=== PATIENT | male | born 1955 | race Caucasian/White ===

== ENCOUNTER 2020-02-02 08:30 | Observation (INO) ==
[2020-02-02] MEDS ORDERED: 0.9 % Sodium Chloride 1,000 ML ONE ×2 (09:10→10:09)
[2020-02-02] MEDS ORDERED: *HR* Heparin 10,000 UNIT/10 ML VIAL ONE (10:09)
[2020-02-02] MEDS ORDERED: ISOVUE-370 200 ML INFUS..BTL ONE (10:09)
[2020-02-02] MEDS ORDERED: Heparin 1,000 UNITS/500 mL 500 ML ONE (10:09)
[2020-02-02] MEDS ORDERED: Nitroglycerin 1,000 MCG/10 ML VIAL IV ONE (10:10)
[2020-02-02] MEDS ORDERED: *HR* Midazolam HCl 2 MG/2 ML VIAL ONE (10:23)
[2020-02-02] MEDS ORDERED: *HR* FentaNYL (PF) 100 MCG/2 ML VIAL ONE (10:23)
[2020-02-02] MEDS: Sucralfate 1 GM TABLET PO SCH ×3 (14:07→21:33)
[2020-02-02] MEDS: *HR* OxyCODONE Immed Rel 5 MG TABLET PO SCH ×2 (14:07→16:49)
[2020-02-02] MEDS: 0.9 % Sodium Chloride 1,000 ML IVC SCH ×2 (14:11→23:00)
[2020-02-02] MEDS: Morphine Sulfate ER (12 HR) 15 MG TABLET.ER PO SCH ×2 (17:01→21:33)
[2020-02-03] MEDS: *HR* OxyCODONE Immed Rel 5 MG TABLET PO SCH ×5 (01:17→23:50)
[2020-02-03] MEDS: Aspirin Enteric Coated 81 MG Tablet PO SCH (08:40)
[2020-02-03] MEDS: Morphine Sulfate ER (12 HR) 15 MG TABLET.ER PO SCH ×3 (08:40→20:51)
[2020-02-03] MEDS: Sucralfate 1 GM TABLET PO SCH ×4 (08:40→20:50)
[2020-02-03] MEDS: Cholecalciferol (D-3) 1,000 UNIT (25MCG) TABLET PO SCH (08:41)
[2020-02-03] MEDS: BuPROPion XL (24 HR) 150 MG TABLET PO SCH (08:41)
[2020-02-03] MEDS: amLODIPine 5 MG TABLET PO SCH (08:41)
[2020-02-03] MEDS: Metoprolol XL (24 HR) Succ 25 MG TAB.ER.24H PO SCH (08:41)
[2020-02-03] MEDS: Nitroglycerin 0.4 MG TAB.SUBL SL SCH (09:45)
[2020-02-03 09:57] LABS: Basophils # 0.1 K/mcL (0.0-0.2); Basophils % 0.9 %; Eosinophils # 0.2 K/mcL (0.0-0.6); Eosinophils % 2.3 %; Hematocrit 32.6 % (37.5-50.1); Hemoglobin 10.4 g/dL (12.9-16.9); Immature Granulocytes % 0.4 % (0-4); Lymphocytes # 2.4 K/mcL (0.6-4.6); Lymphocytes % 24.2 %; Mean Corpuscular HGB Conc 31.9 g/dL (31.6-35.5); Mean Corpuscular Hemoglobin 30.9 pg (28.0-33.3); Mean Corpuscular Volume 96.7 fL (83.0-100.0); Mean Platelet Volume 9.3 fL (9.4-12.4); Monocytes # 1.2 K/mcL (0.0-1.3); Monocytes % 11.8 %; Neutrophils # 6.1 K/mcL (1.6-8.9); Platelet Count 408 K/mcL (140-400); Red Blood Count 3.37 M/mcL (4.19-5.50); Red Cell Distribution Width 13.4 % (11.5-14.5); Segmented Neutrophils % 60.4 %; White Blood Count 10.1 K/mcL (4.3-11.1)
[2020-02-03 10:18] LABS: BUN/Creatinine Ratio 15 (6-26); Blood Urea Nitrogen 12 mg/dL (8-23); Calcium 8.8 mg/dL (8.6-10.3); Carbon Dioxide 29 mEq/L (23-29); Chloride 105 mEq/L (98-107); Glucose 111 mg/dL (70-105); Osmolality,Calculated 286 (280-300); Sodium 138 mEq/L (136-145); eGFR For African Americans > 60 (> 60); eGFR For Non-African Americans > 60 (> 60)
[2020-02-03] MEDS ORDERED: Heparin 1,000 UNITS/500 mL 500 ML ONE (11:34)
[2020-02-03] MEDS ORDERED: 0.9 % Sodium Chloride 2,000 ML ONE (11:34)
[2020-02-03] MEDS ORDERED: ISOVUE-370 200 ML INFUS..BTL ONE (11:34)
[2020-02-03] MEDS ORDERED: *HR* Heparin 10,000 UNIT/10 ML VIAL ONE (11:34)
[2020-02-03] MEDS ORDERED: Nitroglycerin 1,000 MCG/10 ML VIAL IV ONE (11:35)
[2020-02-03] MEDS ORDERED: *HR* FentaNYL (PF) 100 MCG/2 ML VIAL ONE (12:32)
[2020-02-03] MEDS ORDERED: *HR* Midazolam HCl 2 MG/2 ML VIAL ONE (12:32)
[2020-02-03] MEDS ORDERED: Tirofiban 12.5 MG/250ML 12.5 MG/250 ML BAG ONE (12:40)
[2020-02-03] MEDS ORDERED: *HR* Ticagrelor 90 MG TABLET ONE (13:34)
[2020-02-03] MEDS ORDERED: Tirofiban 12.5 MG/250ML 12.5 MG/250 ML BAG IVC SCH (14:00)
[2020-02-03] MEDS: *HR* Ticagrelor 90 MG TABLET PO SCH (20:50)
[2020-02-04] MEDS: *HR* OxyCODONE Immed Rel 5 MG TABLET PO SCH (05:49)
[2020-02-04] MEDS: 0.9 % Sodium Chloride 1,000 ML IVC SCH (05:49)
[2020-02-04 07:05] VITALS: BP 127/76
[2020-02-04] MEDS: BuPROPion XL (24 HR) 150 MG TABLET PO SCH (08:16)
[2020-02-04] MEDS: Aspirin Enteric Coated 81 MG Tablet PO SCH (08:16)
[2020-02-04] MEDS: Morphine Sulfate ER (12 HR) 15 MG TABLET.ER PO SCH (08:16)
[2020-02-04] MEDS: amLODIPine 5 MG TABLET PO SCH (08:18)
[2020-02-04] MEDS: Sucralfate 1 GM TABLET PO SCH (08:18)
[2020-02-04] MEDS: Cholecalciferol (D-3) 1,000 UNIT (25MCG) TABLET PO SCH (08:18)
[2020-02-04] MEDS: *HR* Ticagrelor 90 MG TABLET PO SCH (08:18)
[2020-02-04] MEDS: Metoprolol XL (24 HR) Succ 25 MG TAB.ER.24H PO SCH (08:22)
[2020-02-04] MEDS: Nitroglycerin 0.4 MG TAB.SUBL SL SCH (08:23)
== END 2020-02-04 11:51 | disposition home or self-care (01) | DRG 247 ==
LOC: INVDIALAB 08:30 → 3BNU 14:35 → INTOOBSV 02-03 11:51
PROVIDERS: ADMIT Internal Medicine Cardiovascular Disease; ATTEND Internal Medicine Cardiovascular Disease